=== PATIENT | male | born 1965 | race Caucasian/White ===

== ENCOUNTER 2021-01-05 19:58 | Inpatient (IN) | payer MEDICAID, OTHER ==
[~2021-01-05] VITALS: Ht 172.7 cm; Wt 89.1 kg
[~2021-01-05 19:58] MED LIST: CEPH500C2 MT; HYDR-4346 MT; IBUP-2029 MT
[2021-01-05] MEDS ORDERED: MORPHINE SULFATE 4 MG/ML CPJ (NOT FOR IM USE) IV STA (21:16)
[2021-01-05] MEDS ORDERED: ONDANSETRON HCL 4MG/2ML INJ IV STA (21:16)
[2021-01-05] MEDS ORDERED: SODIUM CHLORIDE 0.9% 1,000 ML IV ONE (21:30)
[2021-01-05] MEDS ORDERED: PIPERACILLIN/TAZ 3.375G PREMIX 50 ML IV ONE (21:30)
[2021-01-05] MEDS ORDERED: VANCOMYCIN 1 G PREMIX 200 ML IV ONE (21:30)
[2021-01-05 22:08] LABS: BASOPHILS % 0.2 % (0.0-2.0); EOSINOPHILS % 0.1 % (0.0-5.0); HEMATOCRIT. 27.5 % (42.0-52.0); HEMOGLOBIN. 9.1 g/dL (14.0-18.0); LYMPHOCYTES % 7.4 % (20.0-50.0); MEAN CORPUSCULAR HEMOGLOBIN 28.3 pg (28.0-32.0); MEAN CORPUSCULAR VOLUME 85.3 fL (80.0-94.0); MEAN PLATELET VOLUME 7.8 fl (7.4-10.4); MONOCYTES % 6.5 % (2.0-8.0); NEUTROPHILS % 85.8 % (40.0-76.0); PLATELET 446 x1000/uL (130-400); RED BLOOD CELL COUNT 3.23 mill/uL (4.7-6.1); RED CELL DISTRIBUTION WIDTH 16.9 % (11.6-14.6)
[2021-01-05 22:15] LABS: CHLORIDE 108 mEq/L (98-107); PROTHROMBIN TIME 10.9 sec (9.6-11.0)
[2021-01-05 22:33] LABS: *AMPHETAMINES SCREEN URINE NEGATIVE (NEGATIVE); *BARBITURATES SCREEN URINE NEGATIVE (NEGATIVE); *BENZODIAZEPINES SCREEN URINE NEGATIVE (NEGATIVE); *COCAINE SCREEN URINE NEGATIVE (NEGATIVE); CANNABINOID URINE SCREEN NEGATIVE (NEGATIVE); METHADONE URINE SCREEN NEGATIVE (NEGATIVE); OPIATES URINE SCREEN PRESUMTIVE POSITIVE (NEGATIVE); PHENCYCLIDINE URINE SCREEN NEGATIVE (NEGATIVE)
[2021-01-06] VITALS (60 sets, daily range): BP systolic 42–136; BP diastolic 24–83
[2021-01-06] MEDS ORDERED: LORAZEPAM 2MG/ML CPJ IV ONE (00:15)
[2021-01-06] MEDS ORDERED: PANTOPRAZOLE SODIUM 40 MG/VIAL IV ONE (04:15)
[2021-01-06 04:41] LABS: MEAN CORPUSCULAR HEMOGLOBIN 27.1 pg (28.0-32.0); MEAN CORPUSCULAR VOLUME 88.3 fL (80.0-94.0); PLATELET 375 x1000/uL (130-400); RED BLOOD CELL COUNT 2.04 mill/uL (4.7-6.1); RED CELL DISTRIBUTION WIDTH 16.9 % (11.6-14.6)
[2021-01-06 04:59] LABS: HEMOGLOBIN 5.5 g/dL (14.0-18.0)
[2021-01-06] MEDS ORDERED: PANTOPRAZOLE 80 MG in SODIUM CHLORIDE 0.9% 100 ML IV SCH (06:00)
[2021-01-06] MEDS ORDERED: SODIUM CHLORIDE 0.9% 1,000 ML IV SCH (06:00)
[2021-01-06] MEDS ORDERED: SUCCINYLCHOLINE CHLORIDE 200MG/10ML IV ONE (08:24)
[2021-01-06] MEDS ORDERED: ETOMIDATE 2MG/ML 10ML VIAL IV ONE (08:24)
[2021-01-06] MEDS ORDERED: LORAZEPAM 2MG/ML CPJ IV NR (09:30)
[2021-01-06] MEDS ORDERED: LORAZEPAM 2MG/ML CPJ IV PRN (09:30)
[2021-01-06] MEDS ORDERED: LEVETIRACETAM 500 MG in SODIUM CHLORIDE 0.9% 100 ML IV ONE (09:30)
[2021-01-06] MEDS: PROPOFOL 10MG/ML 100ML 100 ML IV PRN ×4 (10:16→21:21)
[2021-01-06] MEDS: LEVETIRACETAM 500MG PREMIX 100 ML IV SCH ×2 (10:18→20:14)
[2021-01-06] MEDS: SODIUM CHLORIDE 0.9% 1,000 ML IV SCH ×2 (10:24→18:51)
[2021-01-06] MEDS: PHENYLEPHRINE 100 MG in DEXT 5% WATER 240 ML IV PRN (11:07)
[2021-01-06 11:34] LABS: BG BASE EXCESS -1.7 mmol/L (-2.0-2.0); BG CARBOXYHEMOGLOBIN 0.2 % (0.5-1.5); BG DEOXYHEMOGLOBIN 1.2 % (0.0-5.0); BG FRACTION INSPIRED OXYGEN 100; BG HCO3 ACT 22.5 mmol/L (22.0-26.0); BG METHEMOGLOBIN 0.5 % (0.0-1.5); BG OXYGEN SATURATION 98.8 % (92.0-98.5); BG OXYHEMOGLOBIN 98.1 % (94.0-97.0); BG PCO2 34.9 mmHg (35.0-45.0); BG PH 7.427 (7.350-7.450); BG PO2 310.9 mmHg (75.0-100.0); BG SAMPLE SITE RIGHT RADIAL; BG TOTAL HEMOGLOBIN 6.9 g/dL (12.0-18.0); BG VENT MODE VENT - AC
[2021-01-06 12:12] LABS: CLARITY URINE CLEAR (CLEAR); COLOR URINE YELLOW (YELLOW); KETONES URINE TRACE (NEGATIVE); LEUKOCYTE ESTERASE URINE TRACE (NEGATIVE); NITRITE URINE NEGATIVE (NEGATIVE); OCCULT BLOOD URINE NEGATIVE (NEGATIVE); PROTEIN URINE TRACE (NEGATIVE); SPECIFIC GRAVITY URINE 1.029 (1.005-1.030); UROBILINOGEN URINE 0.2 E.U./dL (0.2-1.0)
[2021-01-06 14:14] LABS: HEMOGLOBIN. 8.4 g/dL (14.0-18.0); MEAN CORPUSCULAR HEMOGLOBIN 31.3 pg (28.0-32.0); MEAN CORPUSCULAR VOLUME 89.7 fL (80.0-94.0); MEAN PLATELET VOLUME 7.8 fl (7.4-10.4); PLATELET 257 x1000/uL (130-400); RED BLOOD CELL COUNT 2.68 mill/uL (4.7-6.1); RED CELL DISTRIBUTION WIDTH 16.6 % (11.6-14.6)
[2021-01-06 14:58] LABS: PLATELET ESTIMATE NORMAL
[2021-01-06 16:46] LABS: HEMATOCRIT 24.1 % (42.0-52.0); HEMOGLOBIN 8.2 g/dL (14.0-18.0)
[2021-01-06] MEDS: CEFEPIME 2,000 MG in DEXT 5% WATER 100 ML IV SCH (18:51)
[2021-01-06] MEDS: VANCOMYCIN 1 G PREMIX 200 ML IV SCH (20:06)
[2021-01-06] MEDS: PANTOPRAZOLE SODIUM 40 MG/VIAL IV SCH (20:14)
[2021-01-06] MEDS: MIDAZOLAM 100MG/100ML PMX 100 ML IV PRN (21:58)
[2021-01-06] MEDS: FENTANYL CITRATE/PF 2,500 MCG in SODIUM CHLORIDE 0.9% 200 ML IV PRN (21:59)
[2021-01-06 22:01] LABS: HEMATOCRIT. 21.9 % (42.0-52.0); HEMOGLOBIN. 7.7 g/dL (14.0-18.0); MEAN CORPUSCULAR HEMOGLOBIN 31.2 pg (28.0-32.0); MEAN CORPUSCULAR VOLUME 88.6 fL (80.0-94.0); PLATELET 262 x1000/uL (130-400); RED BLOOD CELL COUNT 2.47 mill/uL (4.7-6.1); RED CELL DISTRIBUTION WIDTH 16.3 % (11.6-14.6)
[2021-01-06] MEDS: NOREPINEPHRINE 8 MG in DEXT 5% WATER 242 ML IV PRN (22:08)
[2021-01-06 22:51] LABS: PLATELET ESTIMATE NORMAL
[2021-01-07] VITALS (113 sets, daily range): BP systolic 74–157; BP diastolic 24–127
[2021-01-07] MEDS: PHENYLEPHRINE 100 MG in DEXT 5% WATER 240 ML IV PRN ×3 (00:36→20:28)
[2021-01-07] MEDS: PROPOFOL 10MG/ML 100ML 100 ML IV PRN ×3 (01:14→17:00)
[2021-01-07] MEDS: MIDAZOLAM 100MG/100ML PMX 100 ML IV PRN (05:09)
[2021-01-07] MEDS: SODIUM CHLORIDE 0.9% 1,000 ML IV SCH ×2 (05:46→15:22)
[2021-01-07] MEDS: CEFEPIME 2,000 MG in DEXT 5% WATER 100 ML IV SCH ×2 (05:46→17:00)
[2021-01-07] MEDS: NOREPINEPHRINE 8 MG in DEXT 5% WATER 242 ML IV PRN (06:17)
[2021-01-07 07:49] LABS: HEMATOCRIT. 27.2 % (42.0-52.0); HEMOGLOBIN. 9.7 g/dL (14.0-18.0); MEAN CORPUSCULAR HEMOGLOBIN 31.6 pg (28.0-32.0); MEAN PLATELET VOLUME 7.9 fl (7.4-10.4); PLATELET 237 x1000/uL (130-400); RED BLOOD CELL COUNT 3.06 mill/uL (4.7-6.1); RED CELL DISTRIBUTION WIDTH 16.2 % (11.6-14.6)
[2021-01-07 07:52] LABS: CHLORIDE 117 mEq/L (98-107)
[2021-01-07 08:00] LABS: TOTAL IRON BINDING CAPACITY 150 ug/dL (250-450)
[2021-01-07 08:02] LABS: LDL CHOLESTEROL 35 mg/dL (5-100)
[2021-01-07 08:03] LABS: BG BASE EXCESS -0.1 mmol/L (-2.0-2.0); BG CARBOXYHEMOGLOBIN 0.3 % (0.5-1.5); BG DEOXYHEMOGLOBIN 1.3 % (0.0-5.0); BG FRACTION INSPIRED OXYGEN 75; BG METHEMOGLOBIN 0.2 % (0.0-1.5); BG OXYGEN SATURATION 98.7 % (92.0-98.5); BG OXYHEMOGLOBIN 98.2 % (94.0-97.0); BG PCO2 37.3 mmHg (35.0-45.0); BG PH 7.427 (7.350-7.450); BG PO2 185.2 mmHg (75.0-100.0); BG SAMPLE SITE RIGHT RADIAL; BG TOTAL HEMOGLOBIN 10.3 g/dL (12.0-18.0); BG VENT MODE VENT - AC
[2021-01-07 08:04] LABS: HDL CHOLESTEROL 17 mg/dL (40-59)
[2021-01-07] MEDS: LEVETIRACETAM 500MG PREMIX 100 ML IV SCH ×2 (08:05→20:28)
[2021-01-07] MEDS: VANCOMYCIN 1 G PREMIX 200 ML IV SCH (08:05)
[2021-01-07] MEDS: PANTOPRAZOLE SODIUM 40 MG/VIAL IV SCH ×2 (08:06→20:29)
[2021-01-07 08:21] LABS: FOLIC ACID (FOLATE) SERUM 14.2 ng/mL (>5.38)
[2021-01-07 12:13] LABS: HEMATOCRIT 24.8 % (42.0-52.0); HEMOGLOBIN 8.5 g/dL (14.0-18.0)
[2021-01-07 12:13] LABS: PLATELET ESTIMATE NORMAL
[2021-01-07] MEDS: MIDAZOLAM HCL 100 MG in SODIUM CHLORIDE 0.9% 100 ML IV PRN (15:23)
[2021-01-07] MEDS ORDERED: *PATIENT'S OWN MEDICATION STORAGE XX SCH (16:15)
[2021-01-07] MEDS: SUCRALFATE 1 G/10 ML UDC PO SCH ×2 (16:59→20:29)
[2021-01-07] MEDS ORDERED: PROPOFOL 10MG/ML 100ML 100 ML IV PRN (17:00)
[2021-01-07 19:25] LABS: HEMATOCRIT 22.4 % (42.0-52.0); HEMOGLOBIN 8.1 g/dL (14.0-18.0)
[2021-01-07] MEDS: SODIUM CHLORIDE 0.45% 1,000 ML IV SCH (23:26)
[2021-01-08] VITALS (99 sets, daily range): BP systolic 101–144; BP diastolic 44–77
[2021-01-08] MEDS: MIDAZOLAM HCL 100 MG in SODIUM CHLORIDE 0.9% 100 ML IV PRN ×2 (00:30→14:34)
[2021-01-08 01:29] LABS: HEMATOCRIT 22.8 % (42.0-52.0); HEMOGLOBIN 7.6 g/dL (14.0-18.0)
[2021-01-08 05:39] LABS: CHLORIDE 120 mEq/L (98-107); HEMATOCRIT. 22.3 % (42.0-52.0); HEMOGLOBIN. 7.5 g/dL (14.0-18.0); MEAN CORPUSCULAR HEMOGLOBIN 30.3 pg (28.0-32.0); MEAN CORPUSCULAR VOLUME 89.9 fL (80.0-94.0); MEAN PLATELET VOLUME 8.4 fl (7.4-10.4); PLATELET 220 x1000/uL (130-400); RED BLOOD CELL COUNT 2.48 mill/uL (4.7-6.1); RED CELL DISTRIBUTION WIDTH 16.4 % (11.6-14.6)
[2021-01-08] MEDS: CEFEPIME 2,000 MG in DEXT 5% WATER 100 ML IV SCH ×2 (06:00→17:36)
[2021-01-08] MEDS: PHENYLEPHRINE 100 MG in DEXT 5% WATER 240 ML IV PRN (06:12)
[2021-01-08] MEDS: SUCRALFATE 1 G/10 ML UDC PO SCH ×4 (08:36→20:10)
[2021-01-08] MEDS: LEVETIRACETAM 500MG PREMIX 100 ML IV SCH ×2 (08:37→20:10)
[2021-01-08] MEDS: PANTOPRAZOLE SODIUM 40 MG/VIAL IV SCH ×2 (08:37→20:10)
[2021-01-08] MEDS: SODIUM CHLORIDE 0.45% 1,000 ML IV SCH (08:37)
[2021-01-08 09:02] LABS: BG BASE EXCESS -0.7 mmol/L (-2.0-2.0); BG CARBOXYHEMOGLOBIN 0.3 % (0.5-1.5); BG DEOXYHEMOGLOBIN 6.9 % (0.0-5.0); BG FRACTION INSPIRED OXYGEN 30; BG HCO3 ACT 24.2 mmol/L (22.0-26.0); BG METHEMOGLOBIN 0.2 % (0.0-1.5); BG OXYGEN SATURATION 93.1 % (92.0-98.5); BG OXYHEMOGLOBIN 92.6 % (94.0-97.0); BG PH 7.389 (7.350-7.450); BG PO2 68.8 mmHg (75.0-100.0); BG SAMPLE SITE RIGHT RADIAL; BG TOTAL HEMOGLOBIN 9.1 g/dL (12.0-18.0); BG VENT MODE VENT - AC
[2021-01-08] MEDS ORDERED: VANCOMYCIN 1 G PREMIX 200 ML IV SCH (11:00)
[2021-01-08 12:25] LABS: NUCLEATED RED BLOOD CELLS 3 /100 WBC; PLATELET ESTIMATE NORMAL
[2021-01-08] MEDS: FENTANYL CITRATE/PF 2,500 MCG in SODIUM CHLORIDE 0.9% 200 ML IV PRN (14:35)
[2021-01-08 14:55] LABS: HEMATOCRIT 21.6 % (42.0-52.0); HEMOGLOBIN 7.6 g/dL (14.0-18.0)
[2021-01-08] MEDS: DEXTROSE 5% WATER 1,000 ML IV SCH (15:42)
[2021-01-08] MEDS ORDERED: PROPOFOL 10MG/ML 100ML 100 ML IV PRN (18:15)
[2021-01-09] VITALS (86 sets, daily range): BP systolic 100–138; BP diastolic 50–76
[2021-01-09] MEDS: VANCOMYCIN 1 G PREMIX 200 ML IV SCH ×2 (00:58→20:21)
[2021-01-09 01:05] LABS: HEMATOCRIT 20.3 % (42.0-52.0); HEMOGLOBIN 6.7 g/dL (14.0-18.0)
[2021-01-09] MEDS: DEXTROSE 5% WATER 1,000 ML IV SCH (02:18)
[2021-01-09] MEDS: CEFEPIME 2,000 MG in DEXT 5% WATER 100 ML IV SCH ×2 (05:37→20:21)
[2021-01-09 06:02] LABS: MEAN CORPUSCULAR VOLUME 91.2 fL (80.0-94.0); PLATELET 164 x1000/uL (130-400); RED BLOOD CELL COUNT 2.14 mill/uL (4.7-6.1); RED CELL DISTRIBUTION WIDTH 16.3 % (11.6-14.6)
[2021-01-09 06:09] LABS: CHLORIDE 115 mEq/L (98-107)
[2021-01-09 06:29] LABS: HEMATOCRIT. 19.5 % (42.0-52.0); HEMOGLOBIN. 6.4 g/dL (14.0-18.0)
[2021-01-09] MEDS: MIDAZOLAM HCL 100 MG in SODIUM CHLORIDE 0.9% 100 ML IV PRN ×2 (07:00→20:33)
[2021-01-09] MEDS: LEVETIRACETAM 500MG PREMIX 100 ML IV SCH ×2 (08:39→20:32)
[2021-01-09] MEDS: SUCRALFATE 1 G/10 ML UDC PO SCH ×4 (08:39→20:32)
[2021-01-09] MEDS: PANTOPRAZOLE SODIUM 40 MG/VIAL IV SCH ×2 (08:39→20:32)
[2021-01-09 08:51] LABS: BG BASE EXCESS -0.9 mmol/L (-2.0-2.0); BG CARBOXYHEMOGLOBIN 0.1 % (0.5-1.5); BG DEOXYHEMOGLOBIN 2.1 % (0.0-5.0); BG FRACTION INSPIRED OXYGEN 40; BG HCO3 ACT 23.5 mmol/L (22.0-26.0); BG METHEMOGLOBIN 0.3 % (0.0-1.5); BG OXYGEN SATURATION 97.9 % (92.0-98.5); BG OXYHEMOGLOBIN 97.5 % (94.0-97.0); BG PCO2 37.8 mmHg (35.0-45.0); BG PH 7.412 (7.350-7.450); BG PO2 119.6 mmHg (75.0-100.0); BG SAMPLE SITE RIGHT RADIAL; BG TOTAL HEMOGLOBIN 8.2 g/dL (12.0-18.0); BG TOTAL RESPIRATORY RATE 18 b/min; BG VENT MODE VENT - AC
[2021-01-09 09:07] LABS: CHLORIDE 117 mEq/L (98-107)
[2021-01-09 10:07] LABS: HEMATOCRIT. 22.9 % (42.0-52.0); HEMOGLOBIN. 7.6 g/dL (14.0-18.0); MEAN CORPUSCULAR HEMOGLOBIN 29.8 pg (28.0-32.0); MEAN CORPUSCULAR VOLUME 89.7 fL (80.0-94.0); MEAN PLATELET VOLUME 8.2 fl (7.4-10.4); PLATELET 162 x1000/uL (130-400); RED BLOOD CELL COUNT 2.55 mill/uL (4.7-6.1); RED CELL DISTRIBUTION WIDTH 16.8 % (11.6-14.6)
[2021-01-09 10:19] LABS: PROTHROMBIN TIME 10.9 sec (9.6-11.0)
[2021-01-09] MEDS: DEXT 5%/0.45% NACL 1000ML 1,000 ML IV SCH ×2 (11:16→21:03)
[2021-01-09 11:36] LABS: NUCLEATED RED BLOOD CELLS 2 /100 WBC; PLATELET ESTIMATE NORMAL
[2021-01-09 12:04] LABS: NUCLEATED RED BLOOD CELLS 1 /100 WBC
[2021-01-09 12:05] LABS: PLATELET ESTIMATE NORMAL
[2021-01-09] MEDS ORDERED: HEPARIN 1000 UNITS/ML 10ML ONE (13:38)
[2021-01-09] MEDS ORDERED: LIDOCAINE HCL 1% 20ML VIAL (Pyxis) INJ ONE (13:38)
[2021-01-09] MEDS ORDERED: IOHEXOL-300 100 ML BOTTLE ONE ×2 (13:38→14:52)
[2021-01-09] MEDS ORDERED: VECURONIUM BROMIDE 10 MG/VIAL IV ONE (14:26)
[2021-01-09] MEDS ORDERED: EPHEDRINE SULFATE 50MG/ML VIAL ONE (14:27)
[2021-01-09] MEDS ORDERED: PHENYLEPHRINE HCL 10 MG/ML 1ML (IV VIAL) IV ONE (14:27)
[2021-01-09] MEDS ORDERED: LABETALOL 5MG/ML SYR 20 MG/4 ML SYRINGE IV PRN (14:45)
[2021-01-09] MEDS ORDERED: MEPERIDINE HCL/PF 25MG/ML CPJ IV PRN (14:45)
[2021-01-09] MEDS ORDERED: ONDANSETRON HCL 4MG/2ML INJ IV PRN (14:45)
[2021-01-09] MEDS ORDERED: HYDROMORPHONE HCL/PF 2MG/ML CPJ IV PRN (14:45)
[2021-01-10] VITALS (95 sets, daily range): BP systolic 104–139; BP diastolic 55–79
[2021-01-10] MEDS: CEFEPIME 2,000 MG in DEXT 5% WATER 100 ML IV SCH ×2 (05:04→17:09)
[2021-01-10] MEDS: FENTANYL CITRATE/PF 2,500 MCG in SODIUM CHLORIDE 0.9% 200 ML IV PRN (05:05)
[2021-01-10 05:44] LABS: CHLORIDE 116 mEq/L (98-107)
[2021-01-10] MEDS: DEXT 5%/0.45% NACL 1000ML 1,000 ML IV SCH ×2 (07:24→18:02)
[2021-01-10] MEDS: SUCRALFATE 1 G/10 ML UDC PO SCH ×4 (08:19→20:15)
[2021-01-10] MEDS: PANTOPRAZOLE SODIUM 40 MG/VIAL IV SCH ×2 (08:19→20:15)
[2021-01-10] MEDS: LEVETIRACETAM 500MG PREMIX 100 ML IV SCH ×2 (08:20→20:14)
[2021-01-10 09:23] LABS: MEAN CORPUSCULAR HEMOGLOBIN 29.9 pg (28.0-32.0); MEAN CORPUSCULAR VOLUME 90.3 fL (80.0-94.0); PLATELET 191 x1000/uL (130-400); RED BLOOD CELL COUNT 2.32 mill/uL (4.7-6.1)
[2021-01-10] MEDS: MIDAZOLAM HCL 100 MG in SODIUM CHLORIDE 0.9% 100 ML IV PRN (09:37)
[2021-01-10 09:50] LABS: HEMOGLOBIN 6.9 g/dL (14.0-18.0)
[2021-01-10 11:20] LABS: MEAN PLATELET VOLUME 8.4 fl (7.4-10.4)
[2021-01-10 11:29] LABS: HEMOGLOBIN. 6.9 g/dL (14.0-18.0); RED BLOOD CELL COUNT 2.32 mill/uL (4.7-6.1)
[2021-01-10 11:30] LABS: MEAN CORPUSCULAR HEMOGLOBIN 29.9 pg (28.0-32.0); MEAN CORPUSCULAR VOLUME 90.3 fL (80.0-94.0); PLATELET 191 x1000/uL (130-400)
[2021-01-10] MEDS: VANCOMYCIN 1 G PREMIX 200 ML IV SCH (11:48)
[2021-01-10 14:13] LABS: NUCLEATED RED BLOOD CELLS 2 /100 WBC
[2021-01-10 14:14] LABS: PLATELET ESTIMATE NORMAL
[2021-01-10 16:19] LABS: HEMATOCRIT 22.1 % (42.0-52.0); HEMOGLOBIN 7.7 g/dL (14.0-18.0)
[2021-01-10] MEDS ORDERED: MIDAZOLAM HCL 100 MG in SODIUM CHLORIDE 0.9% 100 ML IV PRN (17:30)
[2021-01-10] MEDS ORDERED: MIDAZOLAM 100MG/100ML PMX 100 ML IV PRN (17:30)
[2021-01-11] VITALS (97 sets, daily range): BP systolic 101–146; BP diastolic 51–88
[2021-01-11] MEDS: ACETAMINOPHEN 650MG/20.3ML UDC PO PRN ×3 (03:22→23:52)
[2021-01-11] MEDS: DEXT 5%/0.45% NACL 1000ML 1,000 ML IV SCH ×2 (04:06→14:43)
[2021-01-11] MEDS: CEFEPIME 2,000 MG in DEXT 5% WATER 100 ML IV SCH ×2 (05:30→17:14)
[2021-01-11] MEDS ORDERED: VANCOMYCIN 1250MG in DEXTROSE 5% WATER 250ML IV SCH (06:00)
[2021-01-11 06:06] LABS: CHLORIDE 113 mEq/L (98-107)
[2021-01-11 07:29] LABS: HEMATOCRIT. 21.6 % (42.0-52.0); HEMOGLOBIN. 7.2 g/dL (14.0-18.0); MEAN CORPUSCULAR VOLUME 90.3 fL (80.0-94.0); MEAN PLATELET VOLUME 8.5 fl (7.4-10.4); PLATELET 182 x1000/uL (130-400); RED CELL DISTRIBUTION WIDTH 16.4 % (11.6-14.6)
[2021-01-11 08:05] LABS: BG BASE EXCESS 0.9 mmol/L (-2.0-2.0); BG CARBOXYHEMOGLOBIN 0.3 % (0.5-1.5); BG DEOXYHEMOGLOBIN 2.3 % (0.0-5.0); BG FRACTION INSPIRED OXYGEN 40; BG HCO3 ACT 25.8 mmol/L (22.0-26.0); BG METHEMOGLOBIN 0.3 % (0.0-1.5); BG OXYGEN SATURATION 97.7 % (92.0-98.5); BG OXYHEMOGLOBIN 97.1 % (94.0-97.0); BG PCO2 42.5 mmHg (35.0-45.0); BG PH 7.401 (7.350-7.450); BG PO2 109.8 mmHg (75.0-100.0); BG SAMPLE SITE RIGHT RADIAL; BG TOTAL HEMOGLOBIN 8.1 g/dL (12.0-18.0); BG VENT MODE VENT - AC
[2021-01-11] MEDS: PANTOPRAZOLE SODIUM 40 MG/VIAL IV SCH ×2 (08:25→21:25)
[2021-01-11] MEDS: LEVETIRACETAM 500MG PREMIX 100 ML IV SCH ×2 (08:25→21:26)
[2021-01-11] MEDS: SUCRALFATE 1 G/10 ML UDC PO SCH ×4 (08:25→21:25)
[2021-01-11] MEDS: FENTANYL CITRATE/PF 2,500 MCG in SODIUM CHLORIDE 0.9% 200 ML IV PRN (08:26)
[2021-01-11 12:35] LABS: PLATELET ESTIMATE NORMAL
[2021-01-11 17:09] LABS: HEMATOCRIT 21.8 % (42.0-52.0); HEMOGLOBIN 7.2 g/dL (14.0-18.0)
[2021-01-11 19:48] LABS: HEMATOCRIT 21.7 % (42.0-52.0)
[2021-01-12] VITALS (79 sets, daily range): BP systolic 110–174; BP diastolic 55–91
[2021-01-12 01:06] LABS: HEMATOCRIT 26.7 % (42.0-52.0); HEMOGLOBIN 9.3 g/dL (14.0-18.0); MEAN CORPUSCULAR HEMOGLOBIN 30.8 pg (28.0-32.0); MEAN CORPUSCULAR VOLUME 88.3 fL (80.0-94.0); PLATELET 208 x1000/uL (130-400); RED BLOOD CELL COUNT 3.02 mill/uL (4.7-6.1); RED CELL DISTRIBUTION WIDTH 15.8 % (11.6-14.6)
[2021-01-12] MEDS: DEXT 5%/0.45% NACL 1000ML 1,000 ML IV SCH (01:30)
[2021-01-12] MEDS: CEFEPIME 2,000 MG in DEXT 5% WATER 100 ML IV SCH ×2 (05:59→17:25)
[2021-01-12 06:00] LABS: HEMATOCRIT. 26.4 % (42.0-52.0); HEMOGLOBIN. 8.8 g/dL (14.0-18.0); MEAN CORPUSCULAR HEMOGLOBIN 29.8 pg (28.0-32.0); MEAN CORPUSCULAR VOLUME 89.5 fL (80.0-94.0); MEAN PLATELET VOLUME 8.3 fl (7.4-10.4); PLATELET 202 x1000/uL (130-400); RED BLOOD CELL COUNT 2.95 mill/uL (4.7-6.1); RED CELL DISTRIBUTION WIDTH 16.1 % (11.6-14.6)
[2021-01-12 06:03] LABS: CHLORIDE 109 mEq/L (98-107)
[2021-01-12 08:42] LABS: BG BASE EXCESS 1.6 mmol/L (-2.0-2.0); BG CARBOXYHEMOGLOBIN 0.3 % (0.5-1.5); BG DEOXYHEMOGLOBIN 2.6 % (0.0-5.0); BG FRACTION INSPIRED OXYGEN 30; BG METHEMOGLOBIN 0.3 % (0.0-1.5); BG OXYGEN SATURATION 97.4 % (92.0-98.5); BG OXYHEMOGLOBIN 96.8 % (94.0-97.0); BG PO2 95.3 mmHg (75.0-100.0); BG SAMPLE SITE RIGHT RADIAL; BG TOTAL HEMOGLOBIN 10.3 g/dL (12.0-18.0); BG VENT MODE VENT - AC
[2021-01-12] MEDS: FENTANYL CITRATE/PF 2,500 MCG in SODIUM CHLORIDE 0.9% 200 ML IV PRN (09:00)
[2021-01-12] MEDS: QUETIAPINE FUMARATE 25MG TABLET PO SCH (09:24)
[2021-01-12] MEDS: LEVETIRACETAM 500MG PREMIX 100 ML IV SCH ×2 (09:24→21:43)
[2021-01-12] MEDS: SUCRALFATE 1 G/10 ML UDC PO SCH ×4 (09:24→21:43)
[2021-01-12] MEDS: PANTOPRAZOLE SODIUM 40 MG/VIAL IV SCH ×2 (09:24→21:43)
[2021-01-12] MEDS: ACETAMINOPHEN 650MG/20.3ML UDC PO PRN ×2 (09:24→19:51)
[2021-01-12] MEDS ORDERED: IPRATROPIUM/ALBUTEROL 0.5-3(2.5)MG/3ML NEB HHN PRN (10:15)
[2021-01-12 11:15] LABS: PLATELET ESTIMATE NORMAL
[2021-01-12] MEDS ORDERED: NALOXONE HCL 0.4MG/ML VIAL IV PRN (11:15)
[2021-01-12] MEDS: IPRATROPIUM/ALBUTEROL 0.5-3(2.5)MG/3ML NEB HHN SCH ×2 (13:25→20:58)
[2021-01-12] MEDS: LORAZEPAM 2MG/ML CPJ IV PRN ×2 (15:34→19:51)
[2021-01-12] MEDS: MORPHINE SULFATE 2 MG/ML CPJ (NOT FOR IM USE) IV PRN ×2 (18:10→22:09)
[2021-01-13] VITALS (61 sets, daily range): BP systolic 111–172; BP diastolic 49–142
[2021-01-13] MEDS: IPRATROPIUM/ALBUTEROL 0.5-3(2.5)MG/3ML NEB HHN SCH ×4 (00:18→20:53)
[2021-01-13] MEDS: LORAZEPAM 2MG/ML CPJ IV PRN ×3 (01:15→20:38)
[2021-01-13] MEDS: ACETAMINOPHEN 650MG/20.3ML UDC PO PRN ×2 (05:33→20:39)
[2021-01-13] MEDS: MORPHINE SULFATE 2 MG/ML CPJ (NOT FOR IM USE) IV PRN (05:39)
[2021-01-13 06:02] LABS: BASOPHILS % 0.2 % (0.0-2.0); EOSINOPHILS % 0.7 % (0.0-5.0); HEMATOCRIT. 29.1 % (42.0-52.0); HEMOGLOBIN. 9.6 g/dL (14.0-18.0); LYMPHOCYTES % 11.9 % (20.0-50.0); MEAN CORPUSCULAR VOLUME 87.9 fL (80.0-94.0); MEAN PLATELET VOLUME 8.3 fl (7.4-10.4); MONOCYTES % 5.8 % (2.0-8.0); NEUTROPHILS % 81.4 % (40.0-76.0); PLATELET 292 x1000/uL (130-400); RED BLOOD CELL COUNT 3.31 mill/uL (4.7-6.1); RED CELL DISTRIBUTION WIDTH 15.9 % (11.6-14.6)
[2021-01-13 06:07] LABS: CHLORIDE 106 mEq/L (98-107)
[2021-01-13] MEDS: LEVETIRACETAM 500MG PREMIX 100 ML IV SCH ×2 (09:00→20:37)
[2021-01-13] MEDS: PANTOPRAZOLE SODIUM 40 MG/VIAL IV SCH ×2 (09:02→20:37)
[2021-01-13] MEDS: LACTULOSE 20G/30ML UDC PO SCH ×2 (09:03→20:37)
[2021-01-13] MEDS: QUETIAPINE FUMARATE 25MG TABLET PO SCH (09:03)
[2021-01-13] MEDS: SUCRALFATE 1 G/10 ML UDC PO SCH ×4 (09:03→20:37)
[2021-01-13] MEDS: MEROPENEM 1,000 MG in SODIUM CHLORIDE 0.9% 100 ML IV SCH (17:39)
[2021-01-14] VITALS (31 sets, daily range): BP systolic 117–168; BP diastolic 58–115
[2021-01-14] MEDS: IPRATROPIUM/ALBUTEROL 0.5-3(2.5)MG/3ML NEB HHN SCH ×4 (01:10→19:57)
[2021-01-14] MEDS: LORAZEPAM 2MG/ML CPJ IV PRN ×3 (02:14→18:04)
[2021-01-14] MEDS: MEROPENEM 1,000 MG in SODIUM CHLORIDE 0.9% 100 ML IV SCH ×3 (02:14→18:04)
[2021-01-14 05:39] LABS: BASOPHILS % 0.3 % (0.0-2.0); EOSINOPHILS % 1.4 % (0.0-5.0); HEMATOCRIT. 25.2 % (42.0-52.0); HEMOGLOBIN. 8.6 g/dL (14.0-18.0); LYMPHOCYTES % 21.2 % (20.0-50.0); MEAN CORPUSCULAR HEMOGLOBIN 29.6 pg (28.0-32.0); MEAN CORPUSCULAR VOLUME 87.1 fL (80.0-94.0); MEAN PLATELET VOLUME 7.7 fl (7.4-10.4); MONOCYTES % 6.2 % (2.0-8.0); NEUTROPHILS % 70.9 % (40.0-76.0); PLATELET 365 x1000/uL (130-400); RED CELL DISTRIBUTION WIDTH 15.4 % (11.6-14.6)
[2021-01-14 05:43] LABS: CHLORIDE 104 mEq/L (98-107)
[2021-01-14] MEDS: PANTOPRAZOLE SODIUM 40 MG/VIAL IV SCH ×2 (08:11→21:06)
[2021-01-14] MEDS: LEVETIRACETAM 500MG PREMIX 100 ML IV SCH ×2 (08:11→21:06)
[2021-01-14] MEDS: QUETIAPINE FUMARATE 25MG TABLET PO SCH (08:11)
[2021-01-14] MEDS: ACETAMINOPHEN 650MG/20.3ML UDC PO PRN (08:11)
[2021-01-14] MEDS: SUCRALFATE 1 G/10 ML UDC PO SCH ×4 (08:11→21:06)
[2021-01-14 11:09] LABS: BG BASE EXCESS 8.4 mmol/L (-2.0-2.0); BG CARBOXYHEMOGLOBIN 0.3 % (0.5-1.5); BG FRACTION INSPIRED OXYGEN 30; BG HCO3 ACT 31.6 mmol/L (22.0-26.0); BG METHEMOGLOBIN 0.1 % (0.0-1.5); BG OXYHEMOGLOBIN 96.6 % (94.0-97.0); BG PCO2 38.2 mmHg (35.0-45.0); BG PH 7.536 (7.350-7.450); BG PO2 85.7 mmHg (75.0-100.0); BG SAMPLE SITE RIGHT RADIAL; BG TOTAL HEMOGLOBIN 9.5 g/dL (12.0-18.0); BG TOTAL RESPIRATORY RATE 24 b/min; BG VENT MODE VENT - AC
[2021-01-14] MEDS: MORPHINE SULFATE 2 MG/ML CPJ (NOT FOR IM USE) IV PRN ×2 (12:05→21:07)
[2021-01-14] MEDS: DIPHENHYDRAMINE 50MG/ML VIAL IV PRN (21:06)
[2021-01-14] MEDS: LACTULOSE 20G/30ML UDC PO SCH (21:06)
[2021-01-14] MEDS: ONDANSETRON HCL 4MG/2ML INJ IV PRN (21:06)
[2021-01-15] VITALS (46 sets, daily range): BP systolic 109–169; BP diastolic 52–119
[2021-01-15] MEDS: IPRATROPIUM/ALBUTEROL 0.5-3(2.5)MG/3ML NEB HHN SCH ×4 (01:49→20:24)
[2021-01-15] MEDS: MEROPENEM 1,000 MG in SODIUM CHLORIDE 0.9% 100 ML IV SCH ×3 (02:11→17:35)
[2021-01-15] MEDS: ONDANSETRON HCL 4MG/2ML INJ IV PRN (02:12)
[2021-01-15] MEDS: LORAZEPAM 2MG/ML CPJ IV PRN ×2 (02:12→18:47)
[2021-01-15] MEDS: DIPHENHYDRAMINE 50MG/ML VIAL IV PRN ×2 (02:12→20:31)
[2021-01-15 05:43] LABS: BASOPHILS % 0.5 % (0.0-2.0); EOSINOPHILS % 1.6 % (0.0-5.0); HEMATOCRIT. 25.5 % (42.0-52.0); LYMPHOCYTES % 19.6 % (20.0-50.0); MEAN CORPUSCULAR HEMOGLOBIN 30.6 pg (28.0-32.0); MEAN CORPUSCULAR VOLUME 86.8 fL (80.0-94.0); MEAN PLATELET VOLUME 7.8 fl (7.4-10.4); MONOCYTES % 7.4 % (2.0-8.0); NEUTROPHILS % 70.9 % (40.0-76.0); PLATELET 427 x1000/uL (130-400); RED BLOOD CELL COUNT 2.94 mill/uL (4.7-6.1); RED CELL DISTRIBUTION WIDTH 15.7 % (11.6-14.6)
[2021-01-15 05:45] LABS: CHLORIDE 105 mEq/L (98-107)
[2021-01-15] MEDS: LACTULOSE 20G/30ML UDC PO SCH ×3 (06:12→20:32)
[2021-01-15] MEDS: SUCRALFATE 1 G/10 ML UDC PO SCH ×4 (06:12→20:31)
[2021-01-15] MEDS: MORPHINE SULFATE 2 MG/ML CPJ (NOT FOR IM USE) IV PRN (06:13)
[2021-01-15] MEDS: LEVETIRACETAM 500MG PREMIX 100 ML IV SCH ×2 (09:11→20:32)
[2021-01-15] MEDS: PANTOPRAZOLE SODIUM 40 MG/VIAL IV SCH ×2 (09:11→20:31)
[2021-01-15] MEDS: QUETIAPINE FUMARATE 25MG TABLET PO SCH (09:17)
[2021-01-15] MEDS: ACETAMINOPHEN 650MG/20.3ML UDC PO PRN ×2 (09:18→20:32)
[2021-01-15 11:21] LABS: BG BASE EXCESS 8.3 mmol/L (-2.0-2.0); BG CARBOXYHEMOGLOBIN 0.3 % (0.5-1.5); BG DEOXYHEMOGLOBIN 1.7 % (0.0-5.0); BG FRACTION INSPIRED OXYGEN 40; BG HCO3 ACT 31.7 mmol/L (22.0-26.0); BG METHEMOGLOBIN 0.2 % (0.0-1.5); BG OXYGEN SATURATION 98.3 % (92.0-98.5); BG OXYHEMOGLOBIN 97.8 % (94.0-97.0); BG PCO2 39.4 mmHg (35.0-45.0); BG PH 7.524 (7.350-7.450); BG PO2 119.4 mmHg (75.0-100.0); BG SAMPLE SITE RIGHT RADIAL; BG TOTAL HEMOGLOBIN 9.8 g/dL (12.0-18.0); BG VENT MODE VENT - CPAP
[2021-01-16] VITALS (30 sets, daily range): BP systolic 104–176; BP diastolic 62–86
[2021-01-16] MEDS: DIPHENHYDRAMINE 50MG/ML VIAL IV PRN (00:33)
[2021-01-16] MEDS: ONDANSETRON HCL 4MG/2ML INJ IV PRN (00:33)
[2021-01-16] MEDS: MEROPENEM 1,000 MG in SODIUM CHLORIDE 0.9% 100 ML IV SCH ×3 (00:33→17:26)
[2021-01-16] MEDS: LORAZEPAM 2MG/ML CPJ IV PRN ×2 (00:33→17:54)
[2021-01-16] MEDS: IPRATROPIUM/ALBUTEROL 0.5-3(2.5)MG/3ML NEB HHN SCH ×4 (01:14→20:54)
[2021-01-16] MEDS: ACETAMINOPHEN 650MG/20.3ML UDC PO PRN ×2 (05:32→17:29)
[2021-01-16] MEDS: LACTULOSE 20G/30ML UDC PO SCH ×3 (05:32→17:26)
[2021-01-16] MEDS: QUETIAPINE FUMARATE 25MG TABLET PO SCH ×2 (09:34→21:00)
[2021-01-16] MEDS: SUCRALFATE 1 G/10 ML UDC PO SCH ×4 (09:34→21:00)
[2021-01-16] MEDS: PANTOPRAZOLE SODIUM 40 MG/VIAL IV SCH ×2 (09:34→21:47)
[2021-01-16 09:38] LABS: BASOPHILS % 0.8 % (0.0-2.0); HEMATOCRIT. 27.8 % (42.0-52.0); HEMOGLOBIN. 9.3 g/dL (14.0-18.0); LYMPHOCYTES % 21.7 % (20.0-50.0); MEAN CORPUSCULAR HEMOGLOBIN 29.6 pg (28.0-32.0); MEAN CORPUSCULAR VOLUME 88.4 fL (80.0-94.0); MEAN PLATELET VOLUME 7.4 fl (7.4-10.4); MONOCYTES % 7.5 % (2.0-8.0); PLATELET 519 x1000/uL (130-400); RED BLOOD CELL COUNT 3.15 mill/uL (4.7-6.1); RED CELL DISTRIBUTION WIDTH 15.7 % (11.6-14.6)
[2021-01-16] MEDS: LEVETIRACETAM 500MG PREMIX 100 ML IV SCH ×2 (09:39→21:47)
[2021-01-16 09:40] LABS: CHLORIDE 106 mEq/L (98-107)
[2021-01-17] VITALS (11 sets, daily range): BP systolic 100–123; BP diastolic 57–76
[2021-01-17] MEDS: IPRATROPIUM/ALBUTEROL 0.5-3(2.5)MG/3ML NEB HHN SCH ×4 (01:07→20:17)
[2021-01-17] MEDS: MEROPENEM 1,000 MG in SODIUM CHLORIDE 0.9% 100 ML IV SCH ×3 (02:38→17:35)
[2021-01-17] MEDS: LACTULOSE 20G/30ML UDC PO SCH ×4 (05:35→22:06)
[2021-01-17] MEDS: SUCRALFATE 1 G/10 ML UDC PO SCH ×5 (06:28→22:06)
[2021-01-17 07:14] LABS: BASOPHILS % 1.3 % (0.0-2.0); EOSINOPHILS % 3.8 % (0.0-5.0); HEMATOCRIT. 28.7 % (42.0-52.0); HEMOGLOBIN. 9.7 g/dL (14.0-18.0); LYMPHOCYTES % 21.6 % (20.0-50.0); MEAN CORPUSCULAR HEMOGLOBIN 29.7 pg (28.0-32.0); MEAN CORPUSCULAR VOLUME 87.7 fL (80.0-94.0); MEAN PLATELET VOLUME 7.9 fl (7.4-10.4); MONOCYTES % 8.5 % (2.0-8.0); NEUTROPHILS % 64.8 % (40.0-76.0); PLATELET 536 x1000/uL (130-400); RED BLOOD CELL COUNT 3.27 mill/uL (4.7-6.1); RED CELL DISTRIBUTION WIDTH 15.8 % (11.6-14.6)
[2021-01-17 07:35] LABS: CHLORIDE 102 mEq/L (98-107)
[2021-01-17] MEDS: LEVETIRACETAM 500MG PREMIX 100 ML IV SCH ×2 (08:54→22:06)
[2021-01-17] MEDS: PANTOPRAZOLE SODIUM 40 MG/VIAL IV SCH ×2 (09:41→22:06)
[2021-01-17] MEDS: QUETIAPINE FUMARATE 25MG TABLET PO SCH ×2 (09:42→22:06)
[2021-01-18] VITALS (14 sets, daily range): BP systolic 83–148; BP diastolic 57–92
[2021-01-18] MEDS: MEROPENEM 1,000 MG in SODIUM CHLORIDE 0.9% 100 ML IV SCH ×3 (00:51→17:24)
[2021-01-18] MEDS: IPRATROPIUM/ALBUTEROL 0.5-3(2.5)MG/3ML NEB HHN SCH ×4 (01:52→21:08)
[2021-01-18] MEDS: LACTULOSE 20G/30ML UDC PO SCH ×3 (05:55→22:48)
[2021-01-18] MEDS: SUCRALFATE 1 G/10 ML UDC PO SCH ×4 (05:55→22:48)
[2021-01-18] MEDS: QUETIAPINE FUMARATE 25MG TABLET PO SCH ×2 (09:22→22:49)
[2021-01-18] MEDS: LEVETIRACETAM 500MG TABLET PO SCH ×2 (09:22→22:49)
[2021-01-18] MEDS: PANTOPRAZOLE SODIUM 40 MG/VIAL IV SCH ×2 (09:22→22:48)
[2021-01-18 09:52] LABS: CHLORIDE 100 mEq/L (98-107)
[2021-01-18 12:16] LABS: BASOPHILS % 0.7 % (0.0-2.0); EOSINOPHILS % 2.1 % (0.0-5.0); HEMATOCRIT. 27.6 % (42.0-52.0); HEMOGLOBIN. 9.7 g/dL (14.0-18.0); LYMPHOCYTES % 18.3 % (20.0-50.0); MEAN CORPUSCULAR HEMOGLOBIN 29.9 pg (28.0-32.0); MEAN CORPUSCULAR VOLUME 85.5 fL (80.0-94.0); MEAN PLATELET VOLUME 7.5 fl (7.4-10.4); NEUTROPHILS % 69.9 % (40.0-76.0); PLATELET 517 x1000/uL (130-400); RED BLOOD CELL COUNT 3.23 mill/uL (4.7-6.1); RED CELL DISTRIBUTION WIDTH 15.7 % (11.6-14.6)
[2021-01-18] MEDS: ONDANSETRON HCL 4MG/2ML INJ IV PRN (13:20)
[2021-01-18] MEDS ORDERED: NALOXONE HCL 0.4MG/ML VIAL IV PRN (17:15)
[2021-01-18] MEDS: HYDROCODONE/ACETAMINOPHEN 5/325MG TABLET PO PRN (17:25)
[2021-01-19] VITALS (12 sets, daily range): BP systolic 93–121; BP diastolic 54–75
[2021-01-19] MEDS: IPRATROPIUM/ALBUTEROL 0.5-3(2.5)MG/3ML NEB HHN SCH ×3 (01:05→20:57)
[2021-01-19] MEDS: LACTULOSE 20G/30ML UDC PO SCH (05:59)
[2021-01-19] MEDS: SUCRALFATE 1 G/10 ML UDC PO SCH ×4 (05:59→21:27)
[2021-01-19 07:09] LABS: BASOPHILS % 0.7 % (0.0-2.0); EOSINOPHILS % 3.4 % (0.0-5.0); HEMATOCRIT. 29.9 % (42.0-52.0); HEMOGLOBIN. 10.1 g/dL (14.0-18.0); LYMPHOCYTES % 31.1 % (20.0-50.0); MEAN CORPUSCULAR HEMOGLOBIN 29.4 pg (28.0-32.0); MEAN CORPUSCULAR VOLUME 87.1 fL (80.0-94.0); MEAN PLATELET VOLUME 7.9 fl (7.4-10.4); MONOCYTES % 11.3 % (2.0-8.0); NEUTROPHILS % 53.5 % (40.0-76.0); PLATELET 536 x1000/uL (130-400); RED BLOOD CELL COUNT 3.43 mill/uL (4.7-6.1); RED CELL DISTRIBUTION WIDTH 15.9 % (11.6-14.6)
[2021-01-19 07:58] LABS: CHLORIDE 102 mEq/L (98-107)
[2021-01-19] MEDS: QUETIAPINE FUMARATE 25MG TABLET PO SCH ×2 (08:59→21:27)
[2021-01-19] MEDS: LEVETIRACETAM 500MG TABLET PO SCH ×2 (08:59→21:27)
[2021-01-19] MEDS: PANTOPRAZOLE SODIUM 40 MG/VIAL IV SCH ×2 (10:10→21:27)
[2021-01-19] MEDS ORDERED: LIDOCAINE HCL 1% 20ML VIAL (Pyxis) INJ ONE (13:44)
[2021-01-19] MEDS ORDERED: SODIUM BICARBONATE 4% (2.4MEQ) 5ML VIAL IV ONE (13:44)
[2021-01-19] MEDS: HYDROCODONE/ACETAMINOPHEN 5/325MG TABLET PO PRN (17:39)
[2021-01-20] VITALS (12 sets, daily range): BP systolic 96–120; BP diastolic 53–73
[2021-01-20] MEDS: IPRATROPIUM/ALBUTEROL 0.5-3(2.5)MG/3ML NEB HHN SCH ×4 (01:06→20:19)
[2021-01-20] MEDS: SUCRALFATE 1 G/10 ML UDC PO SCH ×4 (06:51→22:11)
[2021-01-20] MEDS: PANTOPRAZOLE SODIUM 40 MG/VIAL IV SCH ×2 (08:59→22:11)
[2021-01-20] MEDS: LEVETIRACETAM 500MG TABLET PO SCH ×2 (08:59→22:11)
[2021-01-20] MEDS: QUETIAPINE FUMARATE 25MG TABLET PO SCH ×2 (08:59→22:11)
[2021-01-20] MEDS: HYDROCODONE/ACETAMINOPHEN 5/325MG TABLET PO PRN (13:17)
[2021-01-21] VITALS (12 sets, daily range): BP systolic 98–127; BP diastolic 47–71
[2021-01-21] MEDS: IPRATROPIUM/ALBUTEROL 0.5-3(2.5)MG/3ML NEB HHN SCH ×5 (01:55→21:38)
[2021-01-21] MEDS: SUCRALFATE 1 G/10 ML UDC PO SCH ×4 (06:15→21:13)
[2021-01-21] MEDS: HYDROCODONE/ACETAMINOPHEN 5/325MG TABLET PO PRN (06:24)
[2021-01-21 06:48] LABS: BASOPHILS % 1.1 % (0.0-2.0); EOSINOPHILS % 3.3 % (0.0-5.0); HEMATOCRIT. 28.2 % (42.0-52.0); HEMOGLOBIN. 9.5 g/dL (14.0-18.0); LYMPHOCYTES % 27.8 % (20.0-50.0); MEAN CORPUSCULAR HEMOGLOBIN 29.1 pg (28.0-32.0); MEAN CORPUSCULAR VOLUME 86.2 fL (80.0-94.0); MEAN PLATELET VOLUME 7.8 fl (7.4-10.4); MONOCYTES % 10.3 % (2.0-8.0); NEUTROPHILS % 57.5 % (40.0-76.0); PLATELET 661 x1000/uL (130-400); RED BLOOD CELL COUNT 3.27 mill/uL (4.7-6.1); RED CELL DISTRIBUTION WIDTH 15.7 % (11.6-14.6)
[2021-01-21 06:52] LABS: CHLORIDE 102 mEq/L (98-107)
[2021-01-21] MEDS: LEVETIRACETAM 500MG TABLET PO SCH ×2 (09:28→21:13)
[2021-01-21] MEDS: PANTOPRAZOLE SODIUM 40 MG/VIAL IV SCH ×2 (09:28→21:13)
[2021-01-21] MEDS: QUETIAPINE FUMARATE 25MG TABLET PO SCH ×2 (09:29→21:12)
[2021-01-22] VITALS (16 sets, daily range): BP systolic 99–129; BP diastolic 53–83
[2021-01-22] MEDS: SUCRALFATE 1 G/10 ML UDC PO SCH ×4 (06:25→22:02)
[2021-01-22] MEDS: HYDROCODONE/ACETAMINOPHEN 5/325MG TABLET PO PRN ×2 (06:33→22:11)
[2021-01-22 06:51] LABS: EOSINOPHILS % 2.8 % (0.0-5.0); HEMATOCRIT. 27.5 % (42.0-52.0); HEMOGLOBIN. 9.3 g/dL (14.0-18.0); LYMPHOCYTES % 31.9 % (20.0-50.0); MEAN CORPUSCULAR HEMOGLOBIN 29.1 pg (28.0-32.0); MEAN CORPUSCULAR VOLUME 86.1 fL (80.0-94.0); MEAN PLATELET VOLUME 7.7 fl (7.4-10.4); MONOCYTES % 10.2 % (2.0-8.0); NEUTROPHILS % 54.1 % (40.0-76.0); PLATELET 696 x1000/uL (130-400); RED CELL DISTRIBUTION WIDTH 16.1 % (11.6-14.6)
[2021-01-22 07:52] LABS: CHLORIDE 102 mEq/L (98-107)
[2021-01-22] MEDS: IPRATROPIUM/ALBUTEROL 0.5-3(2.5)MG/3ML NEB HHN SCH ×3 (08:58→21:51)
[2021-01-22] MEDS: PANTOPRAZOLE SODIUM 40 MG/VIAL IV SCH (09:13)
[2021-01-22] MEDS: LEVETIRACETAM 500MG TABLET PO SCH ×2 (09:13→22:02)
[2021-01-22] MEDS: QUETIAPINE FUMARATE 25MG TABLET PO SCH ×2 (09:13→22:03)
[2021-01-22] MEDS ORDERED: POTASSIUM CHLORIDE 20MEQ TABLET SR PO NR (10:30)
[2021-01-23 00:41] VITALS: BP 118/55
[2021-01-23] MEDS: IPRATROPIUM/ALBUTEROL 0.5-3(2.5)MG/3ML NEB HHN SCH ×4 (02:11→22:01)
[2021-01-23 04:00] VITALS: BP 119/69
[2021-01-23 08:00] VITALS: BP 107/67
[2021-01-23] MEDS: QUETIAPINE FUMARATE 25MG TABLET PO SCH ×2 (08:37→21:33)
[2021-01-23] MEDS: PANTOPRAZOLE SODIUM 40 MG/VIAL IV SCH (08:37)
[2021-01-23] MEDS: SUCRALFATE 1 G/10 ML UDC PO SCH ×4 (08:37→21:33)
[2021-01-23] MEDS: LEVETIRACETAM 500MG TABLET PO SCH ×2 (08:37→21:33)
[2021-01-23] MEDS ORDERED: POTASSIUM CHLORIDE 20MEQ TABLET SR PO SCH (10:45)
[2021-01-23 12:00] VITALS: BP 97/54
[2021-01-23] MEDS ORDERED: NON FORMULARY PATIENT HOME MED XX SCH (14:00)
[2021-01-23] MEDS: HYDROCODONE/ACETAMINOPHEN 5/325MG TABLET PO PRN (14:28)
[2021-01-23 16:00] VITALS: BP 102/64
[2021-01-23] MEDS: OMEGA PO SCH (16:27)
[2021-01-23] MEDS: GLUCOSAMINE PO SCH (16:27)
[2021-01-23] MEDS: VITAMIN C PO SCH (16:27)
[2021-01-23 20:00] VITALS: BP 101/60
[2021-01-24] VITALS: BP 102/64
[2021-01-24] MEDS: IPRATROPIUM/ALBUTEROL 0.5-3(2.5)MG/3ML NEB HHN SCH ×4 (01:44→22:03)
[2021-01-24 04:00] VITALS: BP 103/67
[2021-01-24] MEDS: SUCRALFATE 1 G/10 ML UDC PO SCH ×4 (06:38→22:07)
[2021-01-24 08:00] VITALS: BP 109/65
[2021-01-24] MEDS: PANTOPRAZOLE SODIUM 40 MG/VIAL IV SCH (09:01)
[2021-01-24] MEDS: GLUCOSAMINE PO SCH ×2 (09:02→13:28)
[2021-01-24] MEDS: QUETIAPINE FUMARATE 25MG TABLET PO SCH ×2 (09:02→22:07)
[2021-01-24] MEDS: OMEGA PO SCH ×2 (09:02→13:28)
[2021-01-24] MEDS: LEVETIRACETAM 500MG TABLET PO SCH ×2 (09:02→22:07)
[2021-01-24] MEDS: VITAMIN C PO SCH ×2 (09:02→13:28)
[2021-01-24 09:14] LABS: EOSINOPHILS % 2.5 % (0.0-5.0); HEMOGLOBIN. 9.7 g/dL (14.0-18.0); LYMPHOCYTES % 33.4 % (20.0-50.0); MEAN CORPUSCULAR VOLUME 86.5 fL (80.0-94.0); MEAN PLATELET VOLUME 7.5 fl (7.4-10.4); NEUTROPHILS % 56.1 % (40.0-76.0); PLATELET 724 x1000/uL (130-400); RED BLOOD CELL COUNT 3.36 mill/uL (4.7-6.1); RED CELL DISTRIBUTION WIDTH 16.1 % (11.6-14.6)
[2021-01-24 09:30] LABS: CHLORIDE 106 mEq/L (98-107)
[2021-01-24] MEDS ORDERED: TAMS-11 PO (09:31)
[2021-01-24 12:00] VITALS: BP 101/56
[2021-01-24] MEDS ORDERED: NON FORMULARY PATIENT HOME MED XX SCH (14:45)
[2021-01-24 16:00] VITALS: BP 120/51
[2021-01-24 20:00] VITALS: BP 118/69
[2021-01-24] MEDS: FAMOTIDINE 20MG/2ML VIAL IV SCH (22:06)
[2021-01-25] VITALS: BP 103/63
[2021-01-25] MEDS: IPRATROPIUM/ALBUTEROL 0.5-3(2.5)MG/3ML NEB HHN SCH ×2 (01:43→20:47)
[2021-01-25 04:00] VITALS: BP_SYST 116; BP_SYST 126; BP_DIAS 61; BP_DIAS 63
[2021-01-25] MEDS: SUCRALFATE 1 G/10 ML UDC PO SCH ×4 (06:20→20:41)
[2021-01-25 07:43] LABS: CHLORIDE 107 mEq/L (98-107)
[2021-01-25 07:47] LABS: BASOPHILS % 0.8 % (0.0-2.0); EOSINOPHILS % 2.6 % (0.0-5.0); HEMATOCRIT. 29.7 % (42.0-52.0); HEMOGLOBIN. 9.8 g/dL (14.0-18.0); LYMPHOCYTES % 32.8 % (20.0-50.0); MEAN CORPUSCULAR VOLUME 87.7 fL (80.0-94.0); MEAN PLATELET VOLUME 7.3 fl (7.4-10.4); MONOCYTES % 8.9 % (2.0-8.0); NEUTROPHILS % 54.9 % (40.0-76.0); PLATELET 742 x1000/uL (130-400); RED BLOOD CELL COUNT 3.39 mill/uL (4.7-6.1); RED CELL DISTRIBUTION WIDTH 16.1 % (11.6-14.6)
[2021-01-25 08:00] VITALS: BP 119/67
[2021-01-25] MEDS: LEVETIRACETAM 500MG TABLET PO SCH ×2 (08:35→20:41)
[2021-01-25] MEDS: QUETIAPINE FUMARATE 25MG TABLET PO SCH ×2 (08:35→20:42)
[2021-01-25] MEDS: FAMOTIDINE 20MG/2ML VIAL IV SCH (08:35)
[2021-01-25] MEDS: PATIENT OWN MEDICATION PO SCH (08:36)
[2021-01-25 12:00] VITALS: BP 94/54
[2021-01-25] MEDS ORDERED: FAMO20TA8 MT (12:25)
[2021-01-25] MEDS ORDERED: SUCR1TAB30 MT (12:25)
[2021-01-25 16:00] VITALS: BP 106/60
[2021-01-25 20:00] VITALS: BP 148/58
[2021-01-25] MEDS: FAMOTIDINE 20MG TABLET PO SCH (20:41)
[2021-01-25] MEDS ORDERED: NALOXONE HCL 0.4MG/ML VIAL IV PRN (22:00)
[2021-01-25] MEDS: HYDROCODONE/ACETAMINOPHEN 5/325MG TABLET PO PRN (22:29)
[2021-01-26] VITALS: BP 125/85
[2021-01-26] MEDS: IPRATROPIUM/ALBUTEROL 0.5-3(2.5)MG/3ML NEB HHN SCH ×4 (01:48→19:54)
[2021-01-26 04:00] VITALS: BP 123/80
[2021-01-26] MEDS: SUCRALFATE 1 G/10 ML UDC PO SCH ×4 (06:24→20:52)
[2021-01-26 08:00] VITALS: BP 121/79
[2021-01-26] MEDS: FAMOTIDINE 20MG TABLET PO SCH ×2 (08:57→20:52)
[2021-01-26] MEDS: LEVETIRACETAM 500MG TABLET PO SCH ×2 (08:58→20:52)
[2021-01-26] MEDS: QUETIAPINE FUMARATE 25MG TABLET PO SCH ×2 (08:58→20:52)
[2021-01-26] MEDS: PATIENT OWN MEDICATION PO SCH (11:50)
[2021-01-26 12:00] VITALS: BP 97/63
[2021-01-26] MEDS: OMEGA PO SCH ×2 (13:00→18:10)
[2021-01-26] MEDS: GLUCOSAMINE PO SCH ×2 (13:00→18:10)
[2021-01-26] MEDS: VITAMIN C PO SCH ×2 (13:00→18:10)
[2021-01-26] MEDS ORDERED: NON FORMULARY PATIENT HOME MED XX SCH (14:00)
[2021-01-26 16:00] VITALS: BP 109/64
[2021-01-26] MEDS: HYDROCODONE/ACETAMINOPHEN 5/325MG TABLET PO PRN (19:56)
[2021-01-26 20:00] VITALS: BP 104/64
[2021-01-27] VITALS: BP 104/62
[2021-01-27] MEDS: IPRATROPIUM/ALBUTEROL 0.5-3(2.5)MG/3ML NEB HHN SCH ×4 (02:27→21:31)
[2021-01-27 04:00] VITALS: BP 106/70
[2021-01-27] MEDS: HYDROCODONE/ACETAMINOPHEN 5/325MG TABLET PO PRN ×2 (06:40→17:39)
[2021-01-27 08:00] VITALS: BP 106/69
[2021-01-27] MEDS: LEVETIRACETAM 500MG TABLET PO SCH ×2 (09:45→20:27)
[2021-01-27] MEDS: FAMOTIDINE 20MG TABLET PO SCH ×2 (09:45→20:28)
[2021-01-27] MEDS: QUETIAPINE FUMARATE 25MG TABLET PO SCH ×2 (09:45→20:28)
[2021-01-27] MEDS: SUCRALFATE 1 G/10 ML UDC PO SCH ×4 (09:49→20:27)
[2021-01-27 12:00] VITALS: BP 99/41
[2021-01-27] MEDS: OMEGA PO SCH ×2 (12:23→17:39)
[2021-01-27] MEDS: GLUCOSAMINE PO SCH ×2 (12:23→17:39)
[2021-01-27] MEDS: VITAMIN C PO SCH ×2 (12:23→17:39)
[2021-01-27 16:00] VITALS: BP 108/67
[2021-01-28] VITALS: BP 88/53
[2021-01-28] MEDS: IPRATROPIUM/ALBUTEROL 0.5-3(2.5)MG/3ML NEB HHN SCH ×4 (01:37→22:15)
[2021-01-28] MEDS: SUCRALFATE 1 G/10 ML UDC PO SCH ×4 (06:46→21:37)
[2021-01-28] MEDS: HYDROCODONE/ACETAMINOPHEN 5/325MG TABLET PO PRN (06:47)
[2021-01-28 08:00] VITALS: BP 95/63
[2021-01-28] MEDS: LEVETIRACETAM 500MG TABLET PO SCH ×2 (09:39→21:38)
[2021-01-28] MEDS: OMEGA PO SCH ×3 (09:39→17:07)
[2021-01-28] MEDS: VITAMIN C PO SCH ×3 (09:39→17:07)
[2021-01-28] MEDS: QUETIAPINE FUMARATE 25MG TABLET PO SCH ×2 (09:39→21:38)
[2021-01-28] MEDS: FAMOTIDINE 20MG TABLET PO SCH ×2 (09:39→21:38)
[2021-01-28] MEDS: GLUCOSAMINE PO SCH ×3 (09:39→17:07)
[2021-01-28 12:00] VITALS: BP 100/72
[2021-01-28 16:00] VITALS: BP 101/58
[2021-01-28 20:00] VITALS: BP 115/62
[2021-01-29] VITALS: BP 105/60
[2021-01-29] MEDS: SUCRALFATE 1 G/10 ML UDC PO SCH ×3 (06:34→17:54)
[2021-01-29 08:00] VITALS: BP 115/72
[2021-01-29] MEDS: IPRATROPIUM/ALBUTEROL 0.5-3(2.5)MG/3ML NEB HHN SCH ×2 (08:29→14:22)
[2021-01-29] MEDS: LEVETIRACETAM 500MG TABLET PO SCH (10:43)
[2021-01-29] MEDS: VITAMIN C PO SCH ×3 (10:43→17:55)
[2021-01-29] MEDS: QUETIAPINE FUMARATE 25MG TABLET PO SCH (10:43)
[2021-01-29] MEDS: OMEGA PO SCH ×3 (10:43→17:55)
[2021-01-29] MEDS: FAMOTIDINE 20MG TABLET PO SCH (10:43)
[2021-01-29] MEDS: GLUCOSAMINE PO SCH ×3 (10:43→17:55)
[2021-01-29] MEDS: HYDROCODONE/ACETAMINOPHEN 5/325MG TABLET PO PRN (10:56)
[2021-01-29 12:00] VITALS: BP 113/73
[2021-01-29 16:00] VITALS: BP 110/66
[2021-01-29] MEDS ORDERED: HYDROCODONE/ACETAMINOPHEN 5/325MG TABLET PO PRN (17:15)
[2021-01-29 19:33] VITALS: BP 110/66
[2021-01-29 19:55] VITALS: BP 111/77
== END 2021-01-29 19:45 | DRG 710 ==
LOC: ER 19:58 → EDBEDREQ 23:33 → EDBEDREQSVC 23:33 → EDBEDREQTM 23:33 → ENRESERV 01-06 00:57 → EDBEDREQTM 01-06 05:06 → EDBEDREQSVC 01-06 05:06 → EDBEDREQ 01-06 05:06 → ENRESERV 01-06 08:16 → CVICU 01-06 09:07 → 3WST 01-16 19:01 → 6EST 01-23 01:31
PROVIDERS: ADMIT Internal Medicine; ATTEND Internal Medicine
PROC: 5A1955Z Respiratory Ventilation, Greater than 96 Consecutive Hours (ICD-10-PCS; principal; 2021-01-06)
PROC: 30233N1 Transfusion of Nonautologous Red Blood Cells into Peripheral Vein, Percutaneous Approach (ICD-10-PCS; 2021-01-06)
PROC: 02HV33Z Insertion of Infusion Device into Superior Vena Cava, Percutaneous Approach (ICD-10-PCS; 2021-01-06)
PROC: B518ZZA Fluoroscopy of Superior Vena Cava, Guidance (ICD-10-PCS; 2021-01-06)
PROC: 0BH17EZ Insertion of Endotracheal Airway into Trachea, Via Natural or Artificial Opening (ICD-10-PCS; 2021-01-06)
PROC: 0DB78ZX Excision of Stomach, Pylorus, Via Natural or Artificial Opening Endoscopic, Diagnostic (ICD-10-PCS; 2021-01-07)
PROC: 04L33DZ Occlusion of Hepatic Artery with Intraluminal Device, Percutaneous Approach (ICD-10-PCS; 2021-01-10)
PROC: 0S9C3ZZ Drainage of Right Knee Joint, Percutaneous Approach (ICD-10-PCS; 2021-01-19)
DX: A41.9 Sepsis, unspecified organism (principal); J96.00 Acute respiratory failure, unspecified whether with hypoxia or hypercapnia; R57.8 Other shock; J15.0 Pneumonia due to Klebsiella pneumoniae; E46 Unspecified protein-calorie malnutrition; K26.4 Chronic or unspecified duodenal ulcer with hemorrhage; E72.20 Disorder of urea cycle metabolism, unspecified; N17.9 Acute kidney failure, unspecified; E87.0 Hyperosmolality and hypernatremia; I95.9 Hypotension, unspecified; S42.402A Unspecified fracture of lower end of left humerus, initial encounter for closed fracture; K29.71 Gastritis, unspecified, with bleeding; D50.9 Iron deficiency anemia, unspecified; I10 Essential (primary) hypertension; K44.9 Diaphragmatic hernia without obstruction or gangrene; L03.113 Cellulitis of right upper limb; Z20.822 Contact with and (suspected) exposure to COVID-19; D50.0 Iron deficiency anemia secondary to blood loss (chronic); L03.114 Cellulitis of left upper limb; E87.1 Hypo-osmolality and hyponatremia; W18.39XA Other fall on same level, initial encounter; E66.9 Obesity, unspecified; M25.461 Effusion, right knee; M17.11 Unilateral primary osteoarthritis, right knee; R74.01 Elevation of levels of liver transaminase levels; Z79.891 Long term (current) use of opiate analgesic; Z79.899 Other long term (current) drug therapy; Z79.1 Long term (current) use of non-steroidal anti-inflammatories (NSAID); Y93.89 Activity, other specified; Y92.89 Other specified places as the place of occurrence of the external cause; Y99.8 Other external cause status; Z68.29 Body mass index [BMI] 29.0-29.9, adult
CPT/HCPCS: 20611; 36415; 36600; 70551; 71045; 71275; 73560; 74176; 75774; 75898; 76937; 78278; 80048; 80053; 80061; 80202; 80305; 81003; 82140; 82375; 82607; 82728; 82746; 82805; 82962; 83540; 83550; 83605; 84132; 84145; 84295; 84443; 84478; 84484; 85014; 85018; 85025; 85027; 85384; 86850; 86900; 86920; 87070; 87077; 87186; 87426; 88305; 88312; 88313; 89060; 92610; 93005; 93971; 94002; 94003; 94640; 97162; 97166; 97530; 97535; 99291; A6261; C1725; C1730; C1760; C1766; C1769; C9113; J0330; J0692; J1200; J1644; J1953; J2060; J2185; J2250; J2270; J2370; J2405; J2543; J2704; J3010; J3370; J3490; J7030; J7040; J7050; J7060; J7070; P9016; Q9967; A4315